=== PATIENT | male | born 1965 | race African-American/Black ===

== ENCOUNTER 2017-01-06 18:22 | Emergency (ER) | payer OTHER ==
[~2017-01-06] VITALS: Ht 170.2 cm; Wt 64.5 kg
[~2017-01-06 18:22] MED LIST: MOTRIN800 MG PO; NAPROSYN500 MG PO; PEN-VEE K,VEET500 MG PO; PERCOCET 5/31 TABLET PO
[2017-01-06] MEDS ORDERED: MOTRIN800 MG PO (20:37)
[2017-01-06] MEDS ORDERED: FLEXERIL10 MG PO (20:37)
[2017-01-06 20:45] VITALS: BP 148/95
== END 2017-01-06 20:47 | disposition home or self-care (01) ==
LOC: EXP 18:22 → EME 18:22 → EXP 20:47
PROC: 3E0234Z Introduction of Serum, Toxoid and Vaccine into Muscle, Percutaneous Approach (ICD-10-PCS; principal; 2017-01-06)
DX: S16.1XXA Strain of muscle, fascia and tendon at neck level, initial encounter (principal); S39.012A Strain of muscle, fascia and tendon of lower back, initial encounter; V43.62XA Car passenger injured in collision with other type car in traffic accident, initial encounter; Y92.410 Unspecified street and highway as the place of occurrence of the external cause; E78.5 Hyperlipidemia, unspecified; E11.9 Type 2 diabetes mellitus without complications; I10 Essential (primary) hypertension; F17.200 Nicotine dependence, unspecified, uncomplicated
CPT/HCPCS: 99281; 99284